=== PATIENT | male | born 1990 | race Caucasian/White ===

== ENCOUNTER 2022-09-09 10:44 | Day surgery (SDC) | payer BC, SELFPAY ==
[2022-09-09] VITALS (11 sets, daily range): BP systolic 112–164; BP diastolic 73–101; PULSE 65–96; RESP 14–18; TEMP 36.1–39.5; O2SAT 91–100; BMI 63.0; BMI 30.8
--- NOTE | 2022-09-09 11:49 | CT_ITS ---
STUDY: CT ABDOMEN AND PELVIS WITH CONTRAST REASON FOR EXAM: Male, 31 years old. Right lower quadrant pain. RADIATION DOSAGE (If Supplied By Facility): CTDIvol = ( 12.60 ) mGy, DLP = ( 859.37 ) mGycm TECHNIQUE: Transaxial images were obtained from the dome of the diaphragm to the symphysis pubis without oral contrast. IV 100mL Isovue-300 was administered. Sagittal and coronal images were reconstructed. Individualized dose optimization techniques were used for this CT. COMPARISON: None. FINDINGS: The visualized lung bases are unremarkable. The visualized portions of the heart are within normal limits. Normal liver. Normal gallbladder and extrahepatic biliary system. Normal spleen. Normal pancreas. Normal bilateral adrenal glands. Normal right kidney. There is a 2.2 cm x 1.9 cm cyst in the upper pole of the left kidney. Normal visualized stomach. Abnormal appearance of the terminal ileum most likely secondary to the inflammatory process in the right lower quadrant. Normal colon. There is a tubular, thick-walled appendix (>7mm), consistent with acute appendicitis. There is a 4 mm appendicolith in the appendix. Normal abdominal aorta. Normal inferior vena cava. Normal retroperitoneum. Normal urinary bladder. There is a small umbilical hernia containing fat. Spondylolysis of the pars interarticularis of the L5 vertebrae without significant spondylolisthesis. CT/Abdomen/Pelvis WITH Contrast IMPRESSION: Findings into both the appendicitis with inflammatory changes in the right lower quadrant as well as a calcified appendicolith in the appendiceal lumen. Electronically Signed: Vern Hagan MD at 14:28 EDT ,
[2022-09-09] MEDS: 0.9% Normal Saline 1,000 ML 1000 ML IV (11:55)
[2022-09-09] MEDS: Ondansetron 4 MG/2 ML Vial IV (11:55)
[2022-09-09] MEDS: Morphine 4 MG/ML Syringe IV (11:56)
[2022-09-09 12:05] LABS: Absolute Lymphocyte Count 0.94 X10^3/uL (0.83-4.51); Absolute Neutrophil Count 7.9 X10^3/uL (2.0-7.7); Basophil# 0.02 X10^3/uL; Basophil% 0.2 % (0-1); Eosinophil# 0.01 X10^3/uL; Eosinophils% 0.1 % (0-5); Hematocrit 49.1 % (40-54); Hemoglobin 16.7 g/dL (13.0-16.5); Lymphocyte # 0.94 X10^3/ul (0.83-4.51); Lymphocyte % 10.3 % (19-41); Mean Corpuscular Volume 85.2 fL (80-94); Mean Platelet Vol. 10.1 fl (6.2-12.0); Monocyte# 0.19 X10^3/uL; Monocyte% 2.1 % (0-10); NRBC Flagged by Analyzer 0 % (0-5); Neutrophil % 86.6 % (47-70); Platelet Count 210 K/mm3 (150-450); RBC Distribution Width CV 12.5 % (11.6-14.6); RBC Distribution Width SD 38.5 fl (35.1-43.9); Red Blood Count 5.76 M/mm3 (4.6-6.2); White Blood Count 9.1 K/mm3 (4.4-11.0)
[2022-09-09 12:22] LABS: ALB/GLOB Ratio 1.3 RATIO (0.9-2.4); AST(SGOT) 18 U/L (15-37); Alanine Aminotransfer ALT/SGPT 33 U/L (16-61); Albumin, Serum 4.8 g/dL (3.2-5.0); Alkaline Phosphatase 88 U/L (45-117); Anion Gap 4 (5-15); BUN 15 mg/dL (7-18); BUN/Creat Ratio 17.1 RATIO (10-20); Chloride 103 mmol/L (98-107); Creatinine, Serum 0.88 mg/dL (0.70-1.30); EST Glomerular Filtration Rate 108 mL/min (>60); Est Glom Filt Rate - Afr Amer 131 mL/min (>60); Estimated Creatinine Clearance 130.73 ml/min; Globulin 3.7 g/dL (2.2-4.2); Glucose 115 mg/dL (74-106); Lipase 52 U/L (13-75); Potassium 3.9 mmol/L (3.5-5.1); Protein, Total 8.5 g/dL (6.4-8.2); Sodium Level 136 mmol/L (136-145)
--- NOTE | 2022-09-09 12:23 | ED.VIS.GI ---
HPI HPI - GI History of Present Illness Chief Complaint: Abd Pain Informant: patient Abdominal Pain/Flank Pain Onset: Today Context: Gradual Onset Timing: Continuous Quality: Aching Location: RLQ Worsened by: Nothing Relieved by: Nothing Nausea/Vomiting/Emesis GI Symptom: Positive for Nausea and Vomiting Quality: Positive for Nonbilious; Negative for Blood streaks, Coffee ground or Hematemesis Diarrhea/Melena/Hematochezia GI Symptom: Negative for Diarrhea, Melena or Hematochezia Associated Symptoms Associated Symptoms: Negative for Dysuria, Frequency or Hematuria Narrative Narrative: Patient presents with right lower abdominal pain that began today. Patient states it began in the periumbilical area but is mainly over the right lower quadrant at the present time. Patient states he does feel some pain in the left side but the right side is worse. Patient admits to some nausea and vomiting. Patient denies any hematemesis or coffee-ground emesis. Patient states nothing makes his pain better and nothing makes it worse. Patient denies any diarrhea, melena, or hematochezia. Patient denies any dysuria, frequency, or hematuria. Patient does admit to decreased appetite. PFSH PFS Medical History History of fracture of finger History of meniscal tear Allergy/AdvReac Type Severity Reaction Status Date / Time No Known Allergies Allergy Verified 09/09/22 10:46 Family History Grandmother Cancer Grandfather Cancer CVA (cerebral vascular accident) Father Prostate cancer Surgical History S/P medial meniscal repair Social History household members: spouse current occupational status: employed current occupation: works as an reconciliation accountant Smoking Status: Never smoker Electronic Cigarette Use: not used alcohol intake: current alcohol intake frequency: holidays/special occasions only Alcohol type: beer and wine substance use type: does not use what type of physical activity do you participate in: other details: softball frequency: 3-4 times per week do you feel safe at home: Yes ROS ROS ED Constitutional Constitutional ED: Reports chills; Denies fever(s) Eyes Eyes: Denies blurry vision or change in vision ENT ENT ED: Denies rhinorrhea or sore throat Cardiovascular Cardiovascular: Denies chest pain or palpitations Respiratory/Chest Respiratory/Chest: Denies cough or dyspnea Gastrointestinal Gastrointestinal: Reports abdominal pain, nausea and vomiting; Denies diarrhea or melena Genitourinary Genitourinary ED: Denies dysuria or hematuria Musculoskeletal Musculoskeletal: Denies back pain or neck pain Integumentary Denies abscess or rash Neurologic Neurologic: Denies headache(s) or weakness Allergic/Immunologic Allergic/Immunologic ED: Denies mouth swelling or urticaria EXAM Physical Exam Const Vital Signs: 09/09/22 10:44 Temperature 97.0 F L Temperature Source Temporal Pulse Rate 65 Respiratory Rate 16 Blood Pressure 164/101 H Blood Pressure Mean 122 Pulse Ox 100 Positive well nourished and well developed General Appearance ED: well developed HEENT Reports moist mucous membranes Neck supple and no JVD Resp normal respiratory effort and clear to auscultation bilaterally Cardio regular rate, regular rhythm and no murmurs GI normal to inspection, nondistended, normoactive bowel sounds Palpation: soft and tender LLQ (Mild), RLQ, periumbilical and Rovsing's sign (Negative); Negative for guarding or rebound tenderness present Extremity normal to inspection General Extremety ED: Negative for edema or tenderness General Extremity: Negative for edema Neuro oriented x3, CN's II-XII intact bilaterally and no sensory deficits noted Sensorium / Orientation: alert Motor Exam: strength 5/5 throughout Psych mental status grossly normal Skin no rashes or lesions noted MDM MDM MDM Narrative Medical decision making narrative: Differential diagnosis includes appendicitis, urinary tract infection, ureteral calculus, mesenteric adenitis, colitis, pancreatitis, bowel obstruction, and perforation. CBC will be obtained to assess for leukocytosis and anemia. Comprehensive metabolic profile will be obtained to assess for hepatic function, renal function, and electrolyte abnormality. Lipase will be obtained to assess for pancreatitis. Urinalysis will be obtained to assess for urinary tract infection and hematuria. CT scan of the abdomen pelvis will be obtained to assess for appendicitis, bowel obstruction, and perforation. Lab Data Lab results narrative: BC was reviewed and was within normal limits. Comprehensive metabolic profile was reviewed and was within normal limits. Lipase was reviewed and was normal. Urinalysis was reviewed. There is no evidence of urinary tract infection or hematuria. Urine ketones were 150. Labs: Laboratory Results - last 24 hr 09/09/22 09/09/22 09/09/22 11:25 11:25 13:10 WBC 9.1 RBC 5.76 Hgb 16.7 H Hct 49.1 MCV 85.2 MCH 29.0 MCHC 34.0 RDW Std Deviation 38.5 RDW Coeff of Manju 12.5 Plt Count 210 MPV 10.1 Immature Gran % (Auto) 0.700 Neut % (Auto) 86.6 H Lymph % (Auto) 10.3 L Ble[place] % (Auto) 2.1 Eos % (Auto) 0.1 Baso % (Auto) 0.2 Absolute Neuts (auto) 7.9 H Absolute Lymphs (auto) 0.94 Nucleated RBC % 0 Sodium 136 Potassium 3.9 Chloride 103 Carbon Dioxide 29.0 Anion Gap 4 L BUN 15 Creatinine 0.88 Estim Creat Clear Calc 130.73 Est GFR (MDRD) Af Amer 131 Est GFR (MDRD) Non-Af 108 BUN/Creatinine Ratio 17.1 Glucose 115 H Calcium 9.0 Total Bilirubin 0.60 AST 18 ALT 33 Alkaline Phosphatase 88 Total Protein 8.5 H Albumin 4.8 Globulin 3.7 Albumin/Globulin Ratio 1.3 Lipase 52 Urine Color Yellow Urine Clarity Clear Urine pH 5.0 Ur Specific [place] 1.020 Urine Protein 15 H Urine Glucose (UA) Normal Urine Ketones 150 A* Urine Occult Blood Negative Urine Nitrite Negative Urine Bilirubin Negative Urine Urobilinogen Normal Ur Leukocyte Esterase Negative Urine RBC 0 SEEN Urine WBC 0 SEEN Ur Squamous Epith Cells 0 SEEN Urine Bacteria 0 SEEN Urine Mucus 0 SEEN Radiography Diagnostic Testing: Clinical Impression(s) from Imaging Studies Abdomen/Pelvis CT 09/09/22 11:49 IMPRESSION: Findings into both the appendicitis with inflammatory changes in the right lower quadrant as well as a calcified appendicolith in the appendiceal lumen. Electronically Signed: Vern Hagan MD at 14:28 EDT , CT scan of the abdomen pelvis was obtained. There is appendicitis with inflammatory changes in the right lower quadrant as well as a calcified appendicolith. This was interpreted by the radiologist and was also independently reviewed by myself. Management Discussion w/another healthcare provider: Maintenance Supervisor 2Nd Shift (Dr. Santos from general surgery) Treatment and Re-Evaluation :: Patient was given IV fluids, morphine, and Zofran. Patient is feeling better on reevaluation. Patient was advised of his findings. Patient was given a dose of Zosyn. Case was discussed with Dr. Santos from general surgery. Discharge Plan Triage Chief Complaint: Abd Pain ED Provider: Preston Amezquita Dx/Rx/DC Orders Clinical Impression: Acute appendicitis, Abdominal pain, chronic, right lower quadrant Primary Care Provider: Beronica Amin Referrals: Beronica Amin MD [Primary Care Provider] - Disposition Disposition: Acute Care Hospital [facility]
[2022-09-09 13:14] LABS: Bacteria 0 SEEN /hpf (None Seen); Mucous, Urine 0 SEEN /hpf (<or=2+); Red Blood Cells-Urine 0 SEEN /hpf (0-5); Squamous Epithelial Cells - UA 0 SEEN /hpf (0-5); White Blood Cells 0 SEEN /hpf (0-5)
[2022-09-09 13:16] LABS: Color, Urine Yellow (Yellow); Glucose, Dipstick Normal (Normal); Leukocyte Esterase-Dipstick Negative /ul (Negative); Nitrite-Dipstick Negative (Negative); Occult Blood-Urine Negative /ul (Negative); Protein-Dipstick 15 mg/dl (Negative); Urine Bilirubin Dipstick Negative (Negative); Urine Clarity Clear (Clear); Urine Urobilinogen Normal (Normal)
[2022-09-09 13:37] LABS: Ketone-Dipstick 150 mg/dl (Negative)
--- NOTE | 2022-09-09 14:43 | NURSING ---
SURGERY DELBERT ACUTE APPENDICITIS, RT LOWER QUAD PAIN
--- NOTE | 2022-09-09 14:44 | NURSING ---
DR MANDUJANO IN ROOM
--- NOTE | 2022-09-09 15:00 | APP_PTH ---
PATIENT: AKHIL THAPA LOC: [facility] [place] U#:[id number] AGE/SX: 31/M ROOM: RE09/09/[address]: Dr. Vasiliy Santos MD : 1990 BED: DIS: 09/09/2022 SPEC #: [id number] RECD: 09/10/22 09:07 STATUS: LURDES QUEENRene #: [id number] BETY: 09/09/22 15:[address]: Vasiliy Santos DEPT: SURGICAL PATHOLOGY RECD BY: Evelyne Lai ENTERED: 09/10/22 12:08 SP TYPE: APPENDIX OTHR DR: Dr. Beronica Amin MD Tissues: Appendix, NOS Procedures: Surgery Specimen Level III HEADER OPERATION: Laparoscopic appendectomy PRE-OP DIAGNOSIS: Acute appendicitis TISSUE SUBMITTED: Appendix MICROSCOPIC DIAGNOSIS Appendix, appendectomy: Acute appendicitis and periappendicitis. DAMION:rick 09/11/2022 MICROSCOPIC DESCRIPTION Slides are reviewed. GROSS DESCRIPTION Received in fixative is one container labeled with the patient's name and designated appendix. The specimen consists of an appendix measuring 5.5 cm in length and up to 1.0 cm in diameter. The attached periappendiceal adipose tissue measures up to 1.5 cm in width. The serosal surface is congested and focally covered with longoria, purulent material. The appendix is previously, partially opened. The lumen contains fecal material. No fecalith is identified. Welder Fitter Apprentice sections are submitted in two cassettes. / DAMION:rick 09/10/2022 TC:2 CPT: 39468
--- NOTE | 2022-09-09 15:14 | HP.PCM_ITS ---
HPI - General General Date of Service: 09/09/22 Chief Complaint: Acute onset abdominal pain HPI Narrative AKHIL THAPA, is a 31 M who presents to [facility] with complaints of acute onset abdominal pain that began approximately 330 this morning waking him out of sleep. He reports the pain began in periumbilical distribution and has since moved to the bilateral lower quadrants right greater than left. This pain is also associated with nausea and vomiting. Patient did have a normal bowel movement this morning shortly after awakening. Mr. Thapa states this is the worst pain I have ever had and denies any prior similar experiences. He denies any previous GI diagnoses or abdominal surgeries. There is no family history of significant GI diagnoses. Patient's ER work-up is notable for CBC with normal white count but positive left shift. CT imaging of the abdomen pelvis demonstrates an acutely inflamed appendix with diameter greater than 7 mm and periappendiceal stranding along with the presence of a 4 mm appendicolith at the base of the appendix. FOR[facility]LY [facility], [facility] Medical History History of fracture of finger History of meniscal tear Allergy/AdvReac Type Severity Reaction Status Date / Time No Known Allergies Allergy Verified 09/09/22 10:46 Family History Grandmother Cancer Grandfather Cancer CVA (cerebral vascular accident) Father Prostate cancer Surgical History S/P medial meniscal repair Social History household members: spouse current occupational status: employed current occupation: works as an accountant budget Smoking Status: Never smoker Electronic Cigarette Use: not used alcohol intake: current alcohol intake frequency: holidays/special occasions only Alcohol type: beer and wine substance use type: does not use what type of physical activity do you participate in: other details: softball frequency: 3-4 times per week do you feel safe at home: Yes Vital Signs Vital Signs Vital Signs: 09/09/22 10:44 Temperature 97.0 F L Temperature Source Temporal Pulse Rate 65 Respiratory Rate 16 Blood Pressure 164/101 H Blood Pressure Mean 122 Pulse Ox 100 Weight Weight: 220 lb 14.451 oz Body Mass Index (BMI) 30.8 Physical Exam Const alert and oriented x3 Constitutional Narrative: Mild distress from abdominal discomfort General Appearance: cooperative Resp normal respiratory effort GI GI Narrative: Hirsute, no scars, nondistended, soft, tenderness to palpation at McBurney's point. Negative Rovsing sign but positive psoas and obturator signs. Results Lab / Micro Data Result Diagrams: 09/09/22 11:25 09/09/22 11:25 Labs: Laboratory Results - last 24 hr 09/09/22 11:25: WBC 9.1, RBC 5.76, Hgb 16.7 H, Hct 49.1, MCV 85.2, MCH 29.0, MCHC 34.0, RDW Std Deviation 38.5, RDW Coeff of Manju 12.5, Plt Count 210, MPV 10 .1, Immature Gran % (Auto) 0.700, Neut % (Auto) 86.6 H, Lymph % (Auto) 10.3 L, Desha % (Auto) 2.1, Eos % (Auto) 0.1, Baso % (Auto) 0.2, Absolute Neuts (auto) 7.9 H, Absolute Lymphs (auto) 0.94, Nucleated RBC % 0 09/09/22 11:25: Sodium 136, Potassium 3.9, Chloride 103, Carbon Dioxide 29.0, Anion Gap 4 L, BUN 15, Creatinine 0.88, Estim Creat Clear Calc 130.73, Est GFR (MDRD) Af Amer 131, Est GFR (MDRD) Non-Af 108, BUN/Creatinine Ratio 17.1, Glucose 115 H, Calcium 9.0, Total Bilirubin 0.60, AST 18, ALT 33, Alkaline Phosphatase 88, Total Protein 8.5 H, Albumin 4.8, Globulin 3.7, Albumin/Globulin Ratio 1.3, Lipase 52 09/09/22 13:10: Urine Color Yellow, Urine Clarity Clear, Urine pH 5.0, Ur Specific [place] 1.020, Urine Protein 15 H, Urine Glucose (UA) Normal, Urine Ketones 150 A*, Urine Occult Blood Negative, Urine Nitrite Negative, Urine Bilirubin Negative, Urine Urobilinogen Normal, Ur Leukocyte Esterase Negative, Urine RBC 0 SEEN, Urine WBC 0 SEEN, Ur Squamous Epith Cells 0 SEEN, Urine Bacteria 0 SEEN, Urine Mucus 0 SEEN Radiology Impression Abdomen/Pelvis CT 09/09/22 11:49 IMPRESSION: Findings into both the appendicitis with inflammatory changes in the right lower quadrant as well as a calcified appendicolith in the appendiceal lumen. Electronically Signed: Vern Hagan MD at 14:28 EDT , Assessment & Plan Assessment/Plan (1) Acute appendicitis: PLAN: This is a 31-year-old male who presents with acute onset abdominal pain, nausea, and vomiting with subsequent work-up demonstrating classic acute appendicitis. I discussed with Mr. Thapa both this diagnosis as well as the management of appendicitis. I briefly introduced the concept of nonoperative m anagement of appendicitis and highlighted the findings of the code a trial, but concluded that I would not recommend a nonoperative course given the presence of an appendicolith and risk for both perforation and recurrence. Mr. Thapa was previously inclined toward surgery and wishes to undergo treatment as soon as possible. The operation was discussed in detail and patient was informed that we would seek outpatient disposition as long as there were no intraoperative concerns and his pain is well managed postoperatively. He had no further questions. Antibiotics are being administered per emergency medicine. We will have patient transported to the OR from the emergency department for emergent laparoscopic appendectomy. Charges/Coding Visit Charges Inpatient E&M: 63429 Init Hosp L2
[2022-09-09] MEDS: Bupivacaine Mpf 0.5% 30 ML VIAL INFILT (17:26)
--- NOTE | 2022-09-09 17:40 | OP.PCM_ITS ---
Report of Operation Date of Procedure: 09/09/22 Pre-Operative Diagnosis: Acute appendicitis Post-Operative Diagnosis: Same Surgery/Procedure Performed:: Laparoscopic appendectomy Description of Surgical Findings:: ? Acutely inflamed appendix without evidence of perforation and shrouded within a veil coming off of the sidewall towards the anterior surface of the cecum obscuring the view to the base of the appendix Surgeon: Vasiliy Santos church communications administrator: None Type of Anesthesia: General/Supplemental Anesthesiologist: Jens Alexander Specimen's removed: Appendix Drains: None Estimated Blood Loss (mL): 5 Description of Procedure: After appropriate identification in the preoperative holding area, the patient was brought to the operating room and placed supine on the operating room table. Antibiotics had been preoperatively administered in the emergency room. Patient was then induced with general endotracheal anesthetic. The abdomen was prepped and draped in usual sterile fashion. Formal timeout was conducted to co nfirm both the patient and the procedure. A supraumbilical incision was made and carried down to the level of the fascia which was sharply opened. After opening the peritoneum in like fashion a finger sweep was made to confirm position, and a balloon trocar was placed and pneumoperitoneum was established to 15 mmHg. Patient was positioned in Trendelenburg with the left side down. 2 additional 5 mm trocars were placed in the left lower quadrant and suprapubic positions. The peritoneum was inspected and there are no signs of inadvertent injury from this [place] entry. The appendix was visualized with a moderate degree of inflammation and the base was shrouded in a veil coming off of the pelvic sidewall to the anterior aspect of the cecal base. The appendix was placed on traction to the pelvis and this veil was opened using our harmonic scalpel. Using blunt laparoscopic dissection, a window was made in the mesoappendix adjacent to the appendix. The mesoappendix was divided with ap plication of a laparoscopic harmonic. Then the base of the appendix was sealed and amputated with the use of an Endo ALEXA stapler. The appendix was placed in an Endo Catch bag. The staple line was inspected for hemostasis. There was some mild oozing so a Ray-Nicki was placed into the abdomen and pressure was applied to the area of mild oozing which resulted in resolution of this mild hemorrhage. With the appendix out of the way I was able to more closely inspect the base of the cecum and followed the tinea to a point where it appeared to dip in a retrocecal location. Therefore, I bluntly dissected out this additional appendiceal base and stapled it such that the new staple line landed directly at the convergence of the tinea. This remnant of appendix was delivered through our larger port site and a grasper. After hemostasis was, again, confirmed the appendix within the Endo Catch bag was removed from the umbilical port site. There was no evidence of purulent fluid within the pelvis so pneumoperitoneum was then evacuated and the supraumbilical port site fascia was closed with #1 Vicryl in a [id number] fashion. The port sites were infiltrated with 30 mL local anesthetic. The skin of each port site was closed with 4-0 Monocryl in a subcuticular fashion. Steri-Strips and OpSite dressings were applied. Patient tolerated procedure well without any apparent complications. They were awoken from general anesthetic without issue and transferred to post anesthesia care unit for ongoing recovery. Grafts/Implants Used: N/A Complications None Admit VTE Documentation VTE Mechan Device Prophylaxis: SCD's Procedures Digestive 40xxx-49xxx: 67540 Laparoscopy appendectomy
--- NOTE | 2022-09-09 17:50 | DCINST_ITS ---
Discharge Instructions Diet Discharge Diet: No restrictions Activity Discharge Activity: May Not Drive (No driving while using narcotic pain medication) and May Shower (Postoperative day 1) May shower in (days): 2 Ice area for (Minutes): 20 Lifting Restrictions: No lifting greater than 15 pounds for 2 weeks after surgery Dressing / Incision Call your doctor if your incision/area has: Continuous Slow Oozing, Increased Pain/ Swelling, Increased Redness, Foul Smelling Discharge and Swelling at the incision site Call your doctor if you observe: Fever of 101 or Higher Remove Dressing in: 2 days (Please leave Steri-Strips intact until they fall off spontaneously or are taken off at your follow-up visit) Cleanse incision/area with: Soap & Water Follow Up Care Please Follow Up With: Vasiliy Santos MD When: 7-10days postop Test Results: Test results from this visit will be discussed in further detail at your follow- up appointment, if applicable. Discharge Plan Admission Primary Reason for Your Visit: Acute appendicitis Attending Provider: Vasiliy Santos Primary Care Provider: Beronica Amin Instructions Patient Instructions: Appendectomy Lap Dc Discharge Orders/Prescriptions Prescriptions: New oxycodone 5 mg tablet 5 mg PO Q6H PRN (Reason: pain) 5 Days Qty: 14 0RF Referrals / Follow Up: Beronica Amin MD [Primary Care Provider] - Disposition Disposition (needs filled in before D/C Order can be placed): Home, Self Care
[2022-09-09] MEDS: Lactated Ringers 1,000 ML 15 ML IV (18:00)
[2022-09-09] MEDS: oxyCODONE 5 MG Tablet PO (19:45)
--- NOTE | 2022-09-09 20:30 | SUR.PHASEII ---
Pt felt urge to use the restroom, however unsuccessful in urinating. Dr. Santos at bedside for bladder scan of 360. pt instructed he will need to try to use bathroom again before discharge.
--- NOTE | 2022-09-09 20:50 | SUR.PHASEII ---
Pt used restroom again, was successful. bladder scanned for 260. called dr boucher who gave okay for discharge.
== END 2022-09-09 21:05 | disposition home or self-care (01) ==
LOC: ED 14:56 → SDC 15:03 → AC 15:03
PROVIDERS: Emergency Provider Emergency Medicine; PCP Internal Medicine; Visit Provider Surgery
PROC: 0DTJ4ZZ Resection of Appendix, Percutaneous Endoscopic Approach (ICD-10-PCS; CPT 44970; principal; 2022-09-09 14:40)
DX: K35.80 Unspecified acute appendicitis (principal)
CPT/HCPCS: 44970; 00840; 74177; 80053; 81001; 83690; 85025; 88304; 99283; J7030; J7120; Q9967; A4216; J2405

== ENCOUNTER → 2022-11-12 | Outpatient (CLI) | payer BC, SELFPAY ==
[2022-11-12 13:31] LABS: Cholesterol 188 mg/dL (200); High Density Lipoprotein 47 mg/dL; Triglycerides 136 mg/dL; Very Low Density Lipoprotein 27 mg/dL (5-40)
[2022-11-12 13:57] LABS: Hemoglobin A1c 4.9 % (3.8-5.6)
== END | disposition home or self-care (01) ==
LOC: BIMLAB 08:28
PROVIDERS: PCP Internal Medicine; Referring Provider Internal Medicine; Visit Provider Internal Medicine
DX: Z00.00 Encounter for general adult medical examination without abnormal findings (principal)
CPT/HCPCS: 36415; 80061; 83036